=== PATIENT | female | born 1980 | race Caucasian/White ===

== ENCOUNTER 2017-11-07 21:42 | Emergency (ER) | payer OTHER ==
[~2017-11-07] VITALS: Ht 170.1 cm; Wt 63.5 kg
[~2017-11-07 21:42] MED LIST: ADVAIR 100/501 E1 INH; ADVAIR 250/501 EA; ADVAIR 250/501 EA INH; ADVAIR 500/501 E1 INH; ADVAIR 500/501 EA INH; ADVAIR DISKUS 21 DSK IH; ALBUTEROL0.09 MG/A2 IH; ALBUTEROL2.5 MG/0.5 INH; AMOXICILLIN500 MG PO; AMOXIL500 MG PO; ANAPROX DS550 MG PO; AVPAK AZITHROM250 MG PO; BACTRIM DS 8001 TA1 PO; BACTRIM DS 8001 TAB PO; BENADRYL25 MG PO; BUPRENORPHINE HY8 MG PO; CIPRO500 MG PO; CIPROFLOXACIN500 MG PO; CLEOCIN HCL150 MG PO; CLINDAMYCIN HC300 MG PO; CLINDAMYCIN150 MG PO; COMBIVENT1 AR1 IH; COMBIVENT1 AR1 INH; COMBIVENT1 ARO IH; CORDROL20 MG PO; DIFLUCAN150 MG PO; DOXYCYCLINE MO100 MG PO; FLAGYL500 MG PO; HYDROXYZINE PAM50 MG PO; KEFLEX500 MG PO; MACROBID100 M1 PO; MACRODANTIN100 MG PO; MEDROL DOSEPAK4 MG PO; NICODERM C TD; ONDANSETRON HYDR4 M1 PO; PREDNICOT10 MG PO; PREDNICOT20 MG PO; PREDNISONE10 MG PO; PREDNISONE20 M1 PO; PREDNISONE20 MG PO; PRENATAL1 TA1; PRENATAL1 TAB PO; PROAIR HFA0.09 MG/AC IH; PROCARDIA10 MG; PROVENTIL0.09 MG/AC IH; PYRIDIATE200 MG PO; SINEMET 25-100M1 TAB PO; SUBOXONE 8 MG-1 EACH SL; SUBOXONE 8 MG-21 TA2 SL; SUBUTEX8 M1; SUBUTEX8 MG PO; TAGAMET400 MG PO; TRAMADOL HCL50 MG PO; VENTOLIN 02.5 MG/3 M INH; VENTOLIN H0.09 MG/AC INH; VIBRA-TAB100 MG PO; VIBRAMYCIN100 MG PO; Ventolin 02.5 MG/3 M; ZITHROMAX Z PA250 MG PO; ZOFRAN ODT4 MG SL; ZOFRAN4 MG PO
[2017-11-07 21:50] VITALS: BP 120/64
[2017-11-07 22:47] LABS: BILIRUBIN NEGATIVE (NEGATIVE); BLOOD NEGATIVE (NEGATIVE); CLARITY SL CLOUDY (CLEAR); COLOR YELLOW (YELLOW); GLUCOSE NEGATIVE (NEGATIVE); KETONE NEGATIVE (NEGATIVE); LEUKO ESTERASE 2+ (NEGATIVE); NITRITE NEGATIVE (NEGATIVE); SPECIFIC GRAVITY <= 1.005 (1.005-1.030); UROBILINOGEN 0.2 E.U./dl (0.2-1.0)
[2017-11-07 22:55] LABS: URINE AMPHETAMINES < 1000 (1000ng/ml); URINE BARBITURATES < 200 (200ng/ml); URINE BENZODIAZEPINES < 200 (200ng/ml); URINE CANNABINOIDS (THC) > 50 (50ng/ml); URINE COCAINE < 300 (300ng/ml); URINE METHADONE < 300 (300ng/ml); URINE OPIATES > 300 (300ng/ml)
[2017-11-07 22:58] LABS: URINE PHENCYCLIDINE < 25 (25ng/ml)
[2017-11-07 23:02] LABS: EPITHELIAL CELLS 40-45
[2017-11-07 23:03] LABS: BACTERIA TRACE
== END 2017-11-07 23:20 | disposition left against medical advice (07) ==
LOC: ED 21:42
PROVIDERS: Emergency Medicine Emergency Medical Services
DX: O99.321 Drug use complicating pregnancy, first trimester (principal); F11.10 Opioid abuse, uncomplicated; F12.10 Cannabis abuse, uncomplicated; F14.10 Cocaine abuse, uncomplicated; O99.331 Smoking (tobacco) complicating pregnancy, first trimester; F17.210 Nicotine dependence, cigarettes, uncomplicated; O99.511 Diseases of the respiratory system complicating pregnancy, first trimester; J45.909 Unspecified asthma, uncomplicated; Z98.890 Other specified postprocedural states; Z88.0 Allergy status to penicillin; Z91.040 Latex allergy status; Z3A.01 Less than 8 weeks gestation of pregnancy

== ENCOUNTER 2018-03-28 11:58 | Emergency (ER) | payer OTHER ==
[~2018-03-28] VITALS: Ht 170.1 cm; Wt 66.7 kg
[2018-03-28 11:58] VITALS: BP 125/87
[2018-03-28] MEDS ORDERED: PROVENTIL HFA6.7 GM INH (12:00)
[2018-03-28] MEDS ORDERED: PRENATAL 19 TA1 EAC1 PO (12:01)
[2018-03-28] MEDS ORDERED: SUBOXONE 8 MG-1 EACH SL (12:01)
[2018-03-28] MEDS ORDERED: PREDNISONE20 M1 PO (13:44)
[2018-03-28] MEDS ORDERED: ZITHROMAX250 MG PO (13:44)
== END 2018-03-28 14:38 | disposition home or self-care (01) ==
LOC: ED 11:58
DX: O99.512 Diseases of the respiratory system complicating pregnancy, second trimester (principal); J06.9 Acute upper respiratory infection, unspecified; O99.332 Smoking (tobacco) complicating pregnancy, second trimester; F17.210 Nicotine dependence, cigarettes, uncomplicated; Z88.0 Allergy status to penicillin; Z91.040 Latex allergy status; Z79.899 Other long term (current) drug therapy; Z3A.22 22 weeks gestation of pregnancy

== ENCOUNTER 2018-04-16 22:38 | Emergency (ER) | payer OTHER ==
[~2018-04-16] VITALS: Wt 69.4 kg
[~2018-04-16 22:38] MED LIST changes: +PRENATAL 19 TA1 EAC1 PO; +PROVENTIL HFA6.7 GM INH; +ZITHROMAX250 MG PO
[2018-04-16 22:43] VITALS: BP 113/62
[2018-04-16 23:29] LABS: BASO % 0.3 % (0.0-1.0); EOS # 0.6 10*3/uL (0.0-0.4); EOS % 4.1 % (1.0-4.0); HEMATOCRIT 34.8 % (37.0-47.0); HEMOGLOBIN 11.4 g/dl (12.0-16.0); LYMPH # 2.7 10*3/uL (1.3-4.4); LYMPH % 18.9 % (27.0-41.0); MEAN CELL VOLUME 86.4 fl (81.0-99.0); MEAN CORPUSCULAR HGB 28.3 pg (27.0-31.0); MEAN CORPUSCULAR HGB CONC 32.8 g/dl (33.0-37.0); MONO # 1.2 10*3/uL (0.1-1.0); MONO % 8.5 % (3.0-9.0); NEUT # 9.7 10*3/uL (2.3-7.9); NEUT % 67.5 % (47.0-73.0); PLATELET COUNT AUTOMATED 248 10*3/uL (130-400); RED BLOOD COUNT 4.03 10*6/uL (4.10-5.10); RED CELL DISTRI WIDTH 12.7 % (0-14.5); WHITE BLOOD COUNT 14.4 10*3/uL (4.8-10.8)
[2018-04-16 23:44] LABS: ALBUMIN 2.5 gm/dl (3.1-4.5); ALKALINE PHOSPHATASE 135 U/L (45-117); BUN 8 mg/dl (7-24); CHLORIDE 107 mmol/L (98-107); CREATININE 0.53 mg/dL (0.55-1.02); POTASSIUM 3.6 mmol/L (3.5-5.1); SGOT/AST 11 IU/L (3-35); SGPT/ALT 11 U/L (12-78); SODIUM 139 mmol/L (136-145); TOTAL PROTEIN 6.7 gm/dL (6.4-8.2)
[2018-04-16 23:44] LABS: BILIRUBIN NEGATIVE (NEGATIVE); BLOOD NEGATIVE (NEGATIVE); CLARITY CLEAR (CLEAR); COLOR YELLOW (YELLOW); GLUCOSE NEGATIVE (NEGATIVE); KETONE NEGATIVE (NEGATIVE); LEUKO ESTERASE TRACE (NEGATIVE); NITRITE NEGATIVE (NEGATIVE); PH 5.5 (5.0-9.0); UROBILINOGEN 0.2 E.U./dl (0.2-1.0)
[2018-04-16 23:54] LABS: BACTERIA TRACE; EPITHELIAL CELLS 0-2
[2018-05-19] MEDS ORDERED: PREDNISONE20 M1 PO (17:38)
== END 2018-04-17 00:54 | disposition home or self-care (01) ==
LOC: ED 22:38
PROVIDERS: Emergency Medicine Emergency Medical Services
DX: O99.513 Diseases of the respiratory system complicating pregnancy, third trimester (principal); J20.9 Acute bronchitis, unspecified; J45.909 Unspecified asthma, uncomplicated; O23.43 Unspecified infection of urinary tract in pregnancy, third trimester; R82.71 Bacteriuria; O99.333 Smoking (tobacco) complicating pregnancy, third trimester; F17.210 Nicotine dependence, cigarettes, uncomplicated; O99.323 Drug use complicating pregnancy, third trimester; F14.10 Cocaine abuse, uncomplicated; F12.10 Cannabis abuse, uncomplicated; Z79.899 Other long term (current) drug therapy; Z98.890 Other specified postprocedural states; Z3A.28 28 weeks gestation of pregnancy; Z88.0 Allergy status to penicillin; Z91.040 Latex allergy status

== ENCOUNTER 2018-06-29 21:37 | Inpatient (IN) | payer OTHER ==
[~2018-06-29] VITALS: Ht 170.2 cm; Wt 67.2 kg
--- NOTE | ~2018-06-29 | EKG ---
[place], [place] ELECTROCARDIOGRAM REPORT NAME: YARED FRAIRE UNIT #: [id number] ROOM: 412 DOCTOR: YOLA DRAFT REPORT BIRTHDATE: [birth year] [facility] Test Date: 2018-06-29 Test Time: 23:08:36 Pat Name: YARED FRAIRE Department: Room: 412 Gender: F [place] Operator: Viktor Wang : 1980 Requested By: ROSS SALEEM Order Number: [id number] Reading MD: Rolanda Gomez MD Measurements Intervals [place] Rate: 69 P: 63 PA: 129 QRS: 61 QRSD: 96 T: 60 QT: 410 QTc: 440 Interpretive Statements Sinus rhythm The ECG is normal. Electronically Signed On 07-01-2018 13:59:30 PDT by Rolanda Gomez MD CM:EKGRPT:ELECTROCARDIOGRAM REPORT [id number] ROSS SALEEM EPIPHANY DRAFT REPORT ROSS SALEEM
[2018-06-29 21:38] VITALS: BP 131/75
[2018-06-29 22:33] LABS: BILIRUBIN NEGATIVE (NEGATIVE); BLOOD 2+ (NEGATIVE); CLARITY CLEAR (CLEAR); COLOR YELLOW (YELLOW); GLUCOSE NEGATIVE (NEGATIVE); KETONE NEGATIVE (NEGATIVE); LEUKO ESTERASE NEGATIVE (NEGATIVE); NITRITE NEGATIVE (NEGATIVE); UROBILINOGEN 0.2 E.U./dl (0.2-1.0)
[2018-06-29 22:36] LABS: ACETAMINOPHEN (TYLENOL) < 2.0 ug/ml (10-30); ALKALINE PHOSPHATASE 196 U/L (45-117); BUN 10 mg/dl (7-24); CHLORIDE 106 mmol/L (98-107); CREATININE 0.79 mg/dL (0.55-1.02); ETHYL ALCOHOL < 3.0 mg/dl (<3); POTASSIUM 3.5 mmol/L (3.5-5.1); SGOT/AST 14 IU/L (3-35); SGPT/ALT 16 U/L (12-78); SODIUM 139 mmol/L (136-145); TOTAL PROTEIN 7.5 gm/dL (6.4-8.2)
[2018-06-29 22:44] LABS: URINE AMPHETAMINES < 1000 (1000ng/ml); URINE BARBITURATES < 200 (200ng/ml); URINE BENZODIAZEPINES < 200 (200ng/ml); URINE CANNABINOIDS (THC) < 50 (50ng/ml); URINE COCAINE > 300 (300ng/ml); URINE METHADONE < 300 (300ng/ml); URINE OPIATES > 300 (300ng/ml); URINE PHENCYCLIDINE < 25 (25ng/ml)
[2018-06-29 22:47] LABS: BACTERIA 1+
[2018-06-29 23:09] LABS: BASO # 0.1 10*3/uL (0.0-0.1); BASO % 0.4 % (0.0-1.0); EOS # 0.7 10*3/uL (0.0-0.4); EOS % 5.5 % (1.0-4.0); HEMATOCRIT 42.8 % (37.0-47.0); HEMOGLOBIN 13.7 g/dl (12.0-16.0); LYMPH # 3.4 10*3/uL (1.3-4.4); LYMPH % 28.3 % (27.0-41.0); MEAN CELL VOLUME 84.6 fl (81.0-99.0); MEAN CORPUSCULAR HGB 27.1 pg (27.0-31.0); MEAN PLATELET VOLUME 9.1 fl (9.6-12.3); MONO % 8.6 % (3.0-9.0); NEUT # 6.9 10*3/uL (2.3-7.9); NEUT % 56.9 % (47.0-73.0); PLATELET COUNT AUTOMATED 374 10*3/uL (130-400); RED BLOOD COUNT 5.06 10*6/uL (4.10-5.10); RED CELL DISTRI WIDTH 12.6 % (0-14.5); WHITE BLOOD COUNT 12.1 10*3/uL (4.8-10.8)
[2018-06-30 01:15] VITALS: BP 121/77
[2018-06-30] MEDS ORDERED: PROAIR HFA8.5 GM INH (01:43)
[2018-06-30 04:00] VITALS: BP 123/78
[2018-06-30 12:00] VITALS: BP 132/80; BP 83/46
[2018-06-30 16:00] VITALS: BP 143/85
[2018-06-30 20:00] VITALS: BP 138/90
[2018-07-01] VITALS: BP 136/84
[2018-07-01 04:00] VITALS: BP 124/78
[2018-08-30] MEDS ORDERED: Ipratropium Brom3 ML INH (16:35)
[2018-08-30] MEDS ORDERED: PREDNISONE10 MG PO (16:35)
[2018-08-30] MEDS ORDERED: PROAIR HFA8.5 GM INH (16:57)
== END 2018-07-01 10:34 | disposition left against medical advice (07) | DRG 776 ==
LOC: ED 21:37 → EDHOLD 23:05 → 4E 23:36
PROVIDERS: Nurse Practitioner Family
DX: O99.325 Drug use complicating the puerperium (principal); F11.23 Opioid dependence with withdrawal; E44.0 Moderate protein-calorie malnutrition; O99.13 Other diseases of the blood and blood-forming organs and certain disorders involving the immune mechanism complicating the puerperium; F19.10 Other psychoactive substance abuse, uncomplicated; O99.53 Diseases of the respiratory system complicating the puerperium; Z53.21 Procedure and treatment not carried out due to patient leaving prior to being seen by health care provider; O99.335 Smoking (tobacco) complicating the puerperium; D72.829 Elevated white blood cell count, unspecified; F41.9 Anxiety disorder, unspecified; F45.8 Other somatoform disorders; F14.90 Cocaine use, unspecified, uncomplicated; F17.210 Nicotine dependence, cigarettes, uncomplicated; J45.909 Unspecified asthma, uncomplicated; Z88.0 Allergy status to penicillin; Z91.040 Latex allergy status; Z68.23 Body mass index [BMI] 23.0-23.9, adult; Z87.440 Personal history of urinary (tract) infections; Z98.51 Tubal ligation status; Z82.49 Family history of ischemic heart disease and other diseases of the circulatory system; Z81.8 Family history of other mental and behavioral disorders; Z86.19 Personal history of other infectious and parasitic diseases; Z71.6 Tobacco abuse counseling

== ENCOUNTER 2018-07-15 14:27 | Emergency (ER) | payer OTHER ==
[~2018-07-15] VITALS: Ht 170.1 cm; Wt 66.2 kg
[~2018-07-15 14:27] MED LIST changes: +PROAIR HFA8.5 GM INH
[2018-07-15] MEDS ORDERED: PREDNISONE10 MG PO (14:41)
[2018-07-15] MEDS ORDERED: PROAIR HFA8.5 GM INH (14:41)
[2018-07-15] MEDS ORDERED: CLARITIN10 MG PO (14:41)
[2018-07-15] MEDS ORDERED: SINGULAIR10 M1 PO (14:41)
[2018-07-15 15:34] VITALS: BP 119/56
[2018-08-30] MEDS ORDERED: PREDNISONE10 MG PO (16:35)
[2018-08-30] MEDS ORDERED: Ipratropium Brom3 ML INH (16:35)
[2018-08-30] MEDS ORDERED: PROAIR HFA8.5 GM INH (16:57)
== END 2018-07-15 16:15 | disposition left against medical advice (07) ==
LOC: ED 14:27
DX: J45.901 Unspecified asthma with (acute) exacerbation (principal); F17.200 Nicotine dependence, unspecified, uncomplicated; Z88.0 Allergy status to penicillin; Z91.040 Latex allergy status; Z98.51 Tubal ligation status

== ENCOUNTER 2018-11-16 12:38 | Emergency (ER) | payer OTHER ==
[~2018-11-16] VITALS: Ht 170.1 cm; Wt 61.2 kg
[~2018-11-16 12:38] MED LIST changes: +CLARITIN10 MG PO; +Ipratropium Brom3 ML INH; +SINGULAIR10 M1 PO
[2018-11-16 13:01] VITALS: BP 110/60
== END 2018-11-16 13:06 | disposition home or self-care (01) ==
LOC: ED 12:38
DX: T40.1X1A Poisoning by heroin, accidental (unintentional), initial encounter (principal); R40.20 Unspecified coma; J45.909 Unspecified asthma, uncomplicated; F14.90 Cocaine use, unspecified, uncomplicated; F12.90 Cannabis use, unspecified, uncomplicated; F17.200 Nicotine dependence, unspecified, uncomplicated; Z88.0 Allergy status to penicillin; Z91.040 Latex allergy status; Z79.899 Other long term (current) drug therapy; Y92.89 Other specified places as the place of occurrence of the external cause

== ENCOUNTER 2018-11-27 10:18 | Inpatient (IN) | payer OTHER ==
[~2018-11-27] VITALS: Ht 170.2 cm; Wt 64.6 kg
--- NOTE | ~2018-11-27 | EKG ---
[place], [place] ELECTROCARDIOGRAM REPORT NAME: YARED FRAIRE UNIT #: [id number] ROOM: 420 DOCTOR: YOLA DRAFT REPORT BIRTHDATE: [birth year] [facility] Test Date: 2018-11-27 Test Time: 10:35:11 Pat Name: YARED FRAIRE Department: Room: 420 Gender: F Scenery Builder: RYAN : 1980 Requested By: ORIANA MARROQUIN Order Number: [id number] Reading MD: Stanford Elizabeth MD Measurements Intervals [place] Rate: 111 P: 78 [place]: 152 QRS: 75 QRSD: 88 T: 49 QT: 329 QTc: 447 Interpretive Statements Sinus tachycardia Consider right atrial enlargement Compared to ECG 06/29/2018 23:08:36 Sinus rhythm no longer present Electronically Signed On 11-27-2018 17:06:42 PST by Stanford Elizabeth MD CM:EKGRPT:ELECTROCARDIOGRAM REPORT [id number] ORIANA CAMPBELL DRAFT REPORT ORIANA MARROQUIN DO
--- NOTE | ~2018-11-27 | CON ---
[place], [place] REPORT OF CONSULTATION NAME: YARED FRAIRE UNIT #: [id number] ROOM: 420 DOCTOR: PHD CHANDRA NADYA BIRTHDATE: [birth year] DOS: 11/28/2018 HISTORY OF PRESENT ILLNESS: The patient is a 38-year-old female referred by the hospitalist with concerns for anxiety. She overdosed on heroin after being clean since after [facility]. She lives with her father and is unemployed. She has 7 children. Her mother has her 5-month-old currently and she does not have custody of her other children. She has a long history of heroin use. She smokes marijuana daily and smokes half a pack of cigarettes a day. She denied alcohol use. PAST MEDICAL HISTORY: Anxiety, asthma, cocaine abuse, hepatitis C, heroin abuse, leukocytosis, marijuana abuse, moderate protein-calorie malnutrition, panic attacks, tobacco use. MEDICATIONS: Folic acid, thiamine, Phenergan, Lovenox, Desyrel, DuoNeb, Vistaril, Requip, Bentyl, Robaxin, Maalox, Imodium, nicotine, Motrin, Nicoderm, Dulcolax, Zofran, Tylenol, Librium, Rocephin. PHYSICAL EXAMINATION: The patient was awake, alert and oriented. Eye contact and social skills were fair. The patient was irritable that she would not be prescribed benzodiazepines for her anxiety. Affect was constricted and mood was anxious and irritable. She firmly denied suicidal ideation and homicidal ideation. She is a patient at [facility] where she sees a counselor, although she is not sure of his name. She had an appointment for medication management, but did not show, instead wanting to "white-knuckle" her way through her anxiety issues and her sobriety. Speech and language were within normal limits. Thought process was linear and goal directed. Thought content was negative for hallucinations and delusions. Insight and judgment were fair. The patient was not receptive to coping strategies for her anxiety and panic. She discussed having a history of PTSD, which she thinks as a potential trigger for her panic attack. She stated that she used the heroin to deal with her panic and intense anxiety and thinks it is "cruel" that cannot be prescribed Xanax or Ativan. Discussed alternative treatments for anxiety, although the patient was not receptive. She plans to continue to follow up with her outpatient counseling and intensive outpatient program for her heroin use at [facility]. She also agreed to follow up with [facility] to discuss medications as well. DIAGNOSES: Opioid use disorder, cannabis use disorder, tobacco use disorder, posttraumatic stress disorder, panic disorder with agoraphobia. RECOMMENDATIONS: Continue following up with counseling and medication management with [facility] as well as intensive outpatient program at [facility]. The patient was agreeable to this. Thank you very much for this consult. [place], [place] REPORT OF CONSULTATION NAME: YARED FRAIRE UNIT #: [id number] ROOM: 420 DOCTOR: CHANDRA PHD NADYA BIRTHDATE: [birth year] Celeste Cuevas, PhD CM:CONSTR:REPORT OF CONSULTATION 1506 12/05/18 0820 interface
[2018-11-27 10:22] VITALS: BP 128/64; BP 128/84
[2018-11-27 11:16] LABS: BASO % 0.2 % (0.0-1.0); EOS # 0.1 10*3/uL (0.0-0.4); EOS % 0.4 % (1.0-4.0); HEMATOCRIT 42.7 % (37.0-47.0); HEMOGLOBIN 13.9 g/dl (12.0-16.0); LYMPH # 1.2 10*3/uL (1.3-4.4); LYMPH % 6.7 % (27.0-41.0); MEAN CELL VOLUME 89.7 fl (81.0-99.0); MEAN CORPUSCULAR HGB 29.2 pg (27.0-31.0); MEAN CORPUSCULAR HGB CONC 32.6 g/dl (33.0-37.0); MEAN PLATELET VOLUME 9.7 fl (9.6-12.3); MONO # 1.2 10*3/uL (0.1-1.0); MONO % 6.5 % (3.0-9.0); NEUT # 15.2 10*3/uL (2.3-7.9); NEUT % 85.6 % (47.0-73.0); PLATELET COUNT AUTOMATED 260 10*3/uL (130-400); RED BLOOD COUNT 4.76 10*6/uL (4.10-5.10); WHITE BLOOD COUNT 17.7 10*3/uL (4.8-10.8)
[2018-11-27 11:55] LABS: ALBUMIN 3.8 gm/dl (3.1-4.5); ALKALINE PHOSPHATASE 152 U/L (45-117); BUN 10 mg/dl (7-24); CHLORIDE 106 mmol/L (98-107); CREATININE 0.98 mg/dL (0.55-1.02); POTASSIUM 4.2 mmol/L (3.5-5.1); SGOT/AST 46 IU/L (3-35); SGPT/ALT 57 U/L (12-78); SODIUM 138 mmol/L (136-145); TOTAL PROTEIN 7.7 gm/dL (6.4-8.2)
[2018-11-27 11:56] LABS: ACETAMINOPHEN (TYLENOL) < 5.0 ug/ml (10-30); ETHYL ALCOHOL < 3.0 mg/dl (<3)
[2018-11-27 11:57] LABS: B-hCG (QUALITATIVE) NEGATIVE (NEGATIVE)
[2018-11-27 12:30] VITALS: BP 106/78
--- NOTE | 2018-11-27 12:30 | NUR ---
A 38, admitted to , under the services of JAMES Serrano DO with a diagnosis of HEROIN OVERDOSE. Chief complaint is HEROIN OVERDOSE. Patient arrived via bed from ER. Monitor applied. Initial assessment completed. Vital signs taken and recorded. JAMES SERRANO DO notified of admission to the unit. Orders received. See assessment for past medical history, medications and allergies. Patient and/or family oriented to unit. Clothing/patient valuable form completed. ALNA RAYGOZA
--- NOTE | 2018-11-27 12:53 | NUR ---
GÓMEZ AWARE THAT MEDCIATIONS ARE VERIFIED.
--- NOTE | 2018-11-27 13:03 | NUR ---
OFFICE MADE AWARE OF CONSULT.
--- NOTE | 2018-11-27 13:50 | NUR ---
PATIENT IS SITTING UP IN BED, ALERT & AWAKE. VOICED NO COMPLAINTS, ON PHONE WITH HER MOM. CALL KASH LEFT WITHIN REACH.
--- NOTE | 2018-11-27 13:56 | NUR ---
URINE SPECIMEN SENT TO LAB FOR UA C&S AND URINE TOX
[2018-11-27 14:01] LABS: BILIRUBIN NEGATIVE (NEGATIVE); BLOOD 2+ (NEGATIVE); CLARITY SL CLOUDY (CLEAR); COLOR YELLOW (YELLOW); GLUCOSE NEGATIVE (NEGATIVE); KETONE TRACE (NEGATIVE); LEUKO ESTERASE NEGATIVE (NEGATIVE); NITRITE POSITIVE (NEGATIVE); PH 5.5 (5.0-9.0); SPECIFIC GRAVITY >= 1.030 (1.005-1.030); UROBILINOGEN 0.2 E.U./dl (0.2-1.0)
--- NOTE | 2018-11-27 14:05 | NUR ---
PATIENT C/O "NODDING OFF" AND "FEELING SUPER HIGH" AT THIS TIME. PATIENT IS ALSO VERY ANXIOUS AND SCARED TO FALL ASLEEP D/T SYMPTOMS. GÓMEZ NOTIFIED, STATES TO PLACE NARCAN 0.2MG IV NOW.
[2018-11-27 14:10] LABS: BACTERIA 4+; FINE GRANULAR CAST 0-2
[2018-11-27 14:11] LABS: URINE AMPHETAMINES < 1000 (1000ng/ml); URINE BARBITURATES < 200 (200ng/ml); URINE BENZODIAZEPINES < 200 (200ng/ml); URINE CANNABINOIDS (THC) > 50 (50ng/ml); URINE COCAINE < 300 (300ng/ml); URINE METHADONE < 300 (300ng/ml); URINE OPIATES < 300 (300ng/ml)
[2018-11-27 14:16] LABS: URINE PHENCYCLIDINE < 25 (25ng/ml)
--- NOTE | 2018-11-27 14:25 | NUR ---
NARCAN IV PUSH WAS GIVEN AT THSI TIME BY AYE WANG. WILL MONITOR
--- NOTE | 2018-11-27 14:30 | NUR ---
GÓMEZ AT BEDSIDE
--- NOTE | 2018-11-27 14:32 | NUR ---
PATIENT MEDICASTED WITH VISTARIL AND MAALOX FOR C/O ANXIETY AND INDIGESTION. WILL MONITOR.
--- NOTE | 2018-11-27 14:35 | NUR ---
PER CRICKET, PATIENT WILL NEED X1 MORE BAG OF NS 1L FOR A TOTAL OF 2L ALTOGETHER.
--- NOTE | 2018-11-27 14:44 | NUR ---
PATIENT IS NOTABLY BETTER AFTER NARCAN ADMINISTRATION, WILL MONITOR.
--- NOTE | 2018-11-27 15:32 | NUR ---
VISTARIL AND MAALOX EFFECTIVE.
[2018-11-27 16:00] VITALS: BP 113/57
--- NOTE | 2018-11-27 18:30 | NUR ---
CALLED AND ASKED IF PATIENT IS ALLOWED TO HAVE MONITOR OFF FOR SHOWER. STATES THAT IS OK BUT TO PLACE BACK ON AFTERWARDS.
[2018-11-27 20:00] VITALS: BP 100/49
[2018-11-28] VITALS: BP 97/55
--- NOTE | 2018-11-28 06:28 | NUR ---
PATIENT REFUSES AM LABS
[2018-11-28 08:50] LABS: BASO % 0.4 % (0.0-1.0); EOS # 0.2 10*3/uL (0.0-0.4); EOS % 4.6 % (1.0-4.0); LYMPH # 1.8 10*3/uL (1.3-4.4); MEAN CELL VOLUME 89.5 fl (81.0-99.0); MEAN CORPUSCULAR HGB 28.4 pg (27.0-31.0); MEAN CORPUSCULAR HGB CONC 31.8 g/dl (33.0-37.0); MONO # 0.7 10*3/uL (0.1-1.0); MONO % 14.2 % (3.0-9.0); NEUT # 1.9 10*3/uL (2.3-7.9); NEUT % 40.6 % (47.0-73.0); PLATELET COUNT AUTOMATED 182 10*3/uL (130-400); RED BLOOD COUNT 4.08 10*6/uL (4.10-5.10); RED CELL DISTRI WIDTH 14.1 % (0-14.5); WHITE BLOOD COUNT 4.6 10*3/uL (4.8-10.8)
[2018-11-28 08:53] LABS: HEMATOCRIT 36.5 % (37.0-47.0); HEMOGLOBIN 11.6 g/dl (12.0-16.0)
--- NOTE | 2018-11-28 09:00 | NUR ---
case management visits with patient, patient states she doesn't have any home needs and didn't want to talk with case management any more this am. case management will follow for any home needs
[2018-11-28 09:10] LABS: ALBUMIN 2.9 gm/dl (3.1-4.5); ALKALINE PHOSPHATASE 119 U/L (45-117); BUN 9 mg/dl (7-24); CHLORIDE 110 mmol/L (98-107); CHOLESTEROL 122 mg/dL (<200); CREATININE 0.64 mg/dL (0.55-1.02); HDL CHOLESTEROL 37 mg/dl (40-60); LDL CHOLESTEROL 72 mg/dL (9-159); PHOSPHOROUS 3.3 mg/dL (2.5-4.9); POTASSIUM 4.1 mmol/L (3.5-5.1); SGOT/AST 28 IU/L (3-35); SGPT/ALT 43 U/L (12-78); SODIUM 142 mmol/L (136-145); TRIGLYCERIDES 67 mg/dl (<150); VLDL CHOLESTEROL 13 mg/dL (6-40)
[2018-11-28 09:11] LABS: FREE T4 1.18 ng/dl (0.76-1.46)
[2018-11-28 12:00] VITALS: BP 126/66
--- NOTE | 2018-11-28 12:14 | NUR ---
librium given for c/o anxiety. will mopnitor.
--- NOTE | 2018-11-28 13:20 | NUR ---
SARA EFFECTIVE PER PT.
[2018-11-28 16:00] VITALS: BP 131/97
[2018-11-29] VITALS: BP 104/63
--- NOTE | 2018-11-29 08:05 | NUR ---
LIBRIUM GIVEN FOR C/O ANXIETY. WILL MONITOR.
--- NOTE | 2018-11-29 09:00 | NUR ---
case management visits with patient, discussed with patient if the staff from [facility] had visited her and given her pamphlets of follow up drug and alcohol programs. patient stated they had given her some and she was deciding on which to do when discharged. case management will follow for any needs
--- NOTE | 2018-11-29 09:10 | NUR ---
LIBRIUM HELPING, NOT FULLY EFFECTIVE. WILL CONTINUE TO MONITOR.
[2018-11-29 12:00] VITALS: BP 129/77
[2018-11-29 16:00] VITALS: BP 121/60
--- NOTE | 2018-11-29 16:06 | NUR ---
LIBRIUM GIVEN FOR C/O ANXIETY. WILL MONITOR.
--- NOTE | 2018-11-29 17:10 | NUR ---
LIBRIUM HELPING, BUT NOT FULLY EFFECTIVE PER PT. WILL CONTINUE TO MONITOR.
[2018-11-29 20:00] VITALS: BP 144/90
[2018-11-30] VITALS: BP 109/61
--- NOTE | 2018-11-30 | NUR ---
RESTING IN BED WITH EYES CLOSED; AROUSES EASILY FOR MIDNIGHT MEDICATION. VOICES NO C/O; COOPERATIVE AT THIS TIME. CALL LIGHT WITHIN REACH.
--- NOTE | 2018-11-30 06:30 | NUR ---
PT. REFUSING PRN MEDICATIONS AT THIS TIME. CALL LIGHT WITHIN REACH.
--- NOTE | 2018-11-30 07:00 | NUR ---
BEDSIDE REPORT OBTAINED FROM PAT-RN. PATIENT IS RESTING IN BED, EYES CLOSED. NO S&S OF DISTRESS NOTED, RESP ARE ERND ON ROOM AIR. BED IS LOCEKD IN LOWEST POSITION. CALL LIGHT LEFT WITHIN REACH.
[2018-11-30 08:00] VITALS: BP 117/67
--- NOTE | 2018-11-30 08:47 | NUR ---
PATIENT MEDICATED WITH VISTARIL FOR C/O ANXIETY. WILL MONITOR
--- NOTE | 2018-11-30 09:47 | NUR ---
PRN VISTARIL NOT EFFECTIVE FOR ANXIETY PER PATIENT.
--- NOTE | 2018-11-30 11:48 | NUR ---
PATIENT REQUESTING ATIVAN FOR C/O ANXIETY. 1-1 INEFFECTIVE, PRN GIVEN. WILL MONITOR
[2018-11-30 12:00] VITALS: BP 115/61
--- NOTE | 2018-11-30 12:48 | NUR ---
ATIVAN EFFECTIVE FOR ANXIETY.
[2018-11-30 16:00] VITALS: BP 123/74
--- NOTE | 2018-11-30 17:57 | NUR ---
PATIENT MEDICATED WITH ROBAXIN FOR C/O MUSCLE SPASMS. WILL MONITOR.
--- NOTE | 2018-11-30 18:57 | NUR ---
ROBAXIN EFFECTIVE FOR MUSCLE SPASMS
[2018-11-30 20:00] VITALS: BP 134/83
--- NOTE | 2018-11-30 20:24 | NUR ---
PATIENT MEDICATED FOR C/O ANXIETY, WANTING TO SLEEP, AND BODY ACHES WITH ATIVAN/DESYREL/MOTRIN. WILL MONITOR
--- NOTE | 2018-11-30 21:24 | NUR ---
ATIVAN/DESYREL/MOTRIN EFFECTIVE
[2018-12-01] VITALS: BP 151/82
--- NOTE | 2018-12-01 00:01 | NUR ---
PATIENT MEDICATED WITH PRN MEDICATIONS PER DRS ORDERS FOR MULTIPLE COMPLAINTS OF WITHDRAWAL. SEE EMAR. RN WILL CONTINUE TO MONITOR
--- NOTE | 2018-12-01 01:00 | NUR ---
EARLIER MEDICATIONS EFFECTIVE
[2018-12-01 08:00] VITALS: BP 122/79
--- NOTE | 2018-12-01 08:08 | NUR ---
24 HR chart check completed.
--- NOTE | 2018-12-01 09:00 | NUR ---
RESTING IN BED, PLAYING ON CELL PHONE. NO DISTRESS NOTED. RESPIRATIONS EASY. LUNGS DIMINISHED, CLEAR. PULSE OX 95% RA. BATHROOM SMELLS HEAVILY OF PERFUME. QUESTIONED PATIENT TO WHETHER SHE WAS SMOKING IN BATHROOM, PATIENT DENIES. ADMITS TO 1 PPD SMOKER BUT DENIES NEED FOR NICOTINE PATCH OR INHALER.
--- NOTE | 2018-12-01 09:38 | NUR ---
Patient displaying withdrawal symptoms, including: irritability, anxiousness, restlessness and agitation. Scheduled/PRN medications provided, SEE EMAR. Will continue to monitor medication effectiveness.
--- NOTE | 2018-12-01 11:00 | NUR ---
Patient resting. Responding to scheduled medications with fewer complaints of pain and anxiety.
[2018-12-01 12:00] VITALS: BP 125/77
[2018-12-01 16:00] VITALS: BP 125/73
--- NOTE | 2018-12-01 16:00 | NUR ---
Patient resting. Responding to scheduled medications with fewer complaints of pain and anxiety.
--- NOTE | 2018-12-01 18:00 | NUR ---
GUEST PRESENT AT BEDSIDE. NO DISTRESS NOTED. NO VOICED COMPLAINTS
--- NOTE | 2018-12-01 19:45 | NUR ---
CALLED TO ROOM BY PATIENT, STATES EARLIER ATIVAN EFFECTIVE BUT "I FEEL IT WEARING OFF." MED FREQUENCY REVIEWED, VOICED UNDERSTANDING.
[2018-12-01 20:00] VITALS: BP 130/76; BP 140/96
[2018-12-02] VITALS: BP 139/91
--- NOTE | 2018-12-02 01:12 | NUR ---
PATIENT MEDICATED PER DRS ORDERS FOR MULTIPLE WITHDRAWAL COMPLAINTS. SEE EMAR. RN WILL CONTINUE TO MONITOR
--- NOTE | 2018-12-02 02:15 | NUR ---
PATIENT STATES EARLIER MEDICATION WAS EFFECTIVE
--- NOTE | 2018-12-02 06:10 | NUR ---
DR SARAH MADE AWARE OF PATIENT REFUSING AM LABS. NO NEW ORDERS
--- NOTE | 2018-12-02 07:10 | NUR ---
PT SLEEPING. RESPS REG/EASY WITH NO DISTRESS NOTED AT THIS TIME. BEDSIDE REPORT RECEIVED FROM DAX DUTTA.
[2018-12-02 07:30] VITALS: BP 134/62
--- NOTE | 2018-12-02 07:55 | NUR ---
ASSESSMENT DONE AND DOCUMENTED. PT RESTING IN BED. BLAKE ALMONTE SPNRCC
--- NOTE | 2018-12-02 08:58 | NUR ---
MA STAFF SPOKE WITH PATIENT. PATIENT STATED THAT SHE IS GOING TO CONTINUE GOING TO HER INTENSIVE OUTPATIENT TREATMENT AT [facility]. PATIENT IS ALSO SCHEDULED TO SEE HER THERAPIST AT [facility] TODAY AT 3PM. PATIENT AGREES AND UNDERSTANDS HER AFTERCARE PLAN. CATE KRISHNAMURTHY B.A. MANAGER SALES
[2018-12-02] MEDS ORDERED: METHOCARBAMOL750 M1 PO (09:15)
[2018-12-02] MEDS ORDERED: ATARAX,VISTARIL50 MG PO (09:15)
[2018-12-02] MEDS ORDERED: LORAZEPAM1 MG PO (09:15)
[2018-12-02] MEDS ORDERED: ROPINIROLE HYD0.5 MG PO (09:15)
--- NOTE | 2018-12-02 09:30 | NUR ---
MEDICATED WITH ATIVAN PRN ORDERED FOR C/O INCREASED ANXIETY AND NERVOUSNESS. COOPERATIVE AT THIS TIME.
--- NOTE | 2018-12-02 09:50 | NUR ---
DISCHARGE INSTRUCTIONS PROVIDED. PT VERBALIZED UNDERSTANDING. IV SITE DC'D. CATH INTACT. SITE ASYMPTOMATIC. PT TOLERATED WELL. WAITING IN ROOM FOR RIDE HOME.
--- NOTE | 2018-12-02 10:26 | NUR ---
Discharge instructions reviewed with patient/family. Patient receptive and verbalizes understanding. Follow-up care arranged. Written instructions given to patient/family. PATIENT AMBULATED FROM FLOOR. NO S/S OF DISTRESS. MICHELLE BLUM
== END 2018-12-02 10:26 | disposition home or self-care (01) | DRG 917 ==
LOC: ED 10:18 → EDHOLD 11:07 → 4E 11:07
PROVIDERS: Internal Medicine; Internal Medicine Nephrology; Registered Nurse; ADMIT Emergency Medicine
DX: T40.1X1A Poisoning by heroin, accidental (unintentional), initial encounter (principal); A41.9 Sepsis, unspecified organism; N30.00 Acute cystitis without hematuria; F41.9 Anxiety disorder, unspecified; D72.829 Elevated white blood cell count, unspecified; J45.909 Unspecified asthma, uncomplicated; B19.20 Unspecified viral hepatitis C without hepatic coma; E87.8 Other disorders of electrolyte and fluid balance, not elsewhere classified; F11.10 Opioid abuse, uncomplicated; F12.10 Cannabis abuse, uncomplicated; F40.01 Agoraphobia with panic disorder; F43.10 Post-traumatic stress disorder, unspecified; B96.20 Unspecified Escherichia coli [E. coli] as the cause of diseases classified elsewhere; R00.1 Bradycardia, unspecified; F17.210 Nicotine dependence, cigarettes, uncomplicated; Z98.51 Tubal ligation status; Z79.899 Other long term (current) drug therapy; Z88.0 Allergy status to penicillin; Z91.040 Latex allergy status; Z82.49 Family history of ischemic heart disease and other diseases of the circulatory system; Z81.8 Family history of other mental and behavioral disorders; Y92.89 Other specified places as the place of occurrence of the external cause; Z71.6 Tobacco abuse counseling

== ENCOUNTER 2019-01-10 12:35 | Emergency (ER) | payer OTHER ==
[~2019-01-10] VITALS: Ht 170.1 cm; Wt 61.2 kg
[~2019-01-10 12:35] MED LIST changes: +ATARAX,VISTARIL50 MG PO; +LORAZEPAM1 MG PO; +METHOCARBAMOL750 M1 PO; +ROPINIROLE HYD0.5 MG PO
[2019-01-10 12:36] VITALS: BP 118/76
[2019-01-10] MEDS ORDERED: MUCINEX1200 M1 PO (14:32)
[2019-01-10] MEDS ORDERED: PREDNISONE50 MG PO (14:32)
[2019-01-10] MEDS ORDERED: PROAIR HFA8.5 GM INH (14:32)
== END 2019-01-10 14:35 | disposition left against medical advice (07) ==
LOC: ED 12:35
DX: J45.901 Unspecified asthma with (acute) exacerbation (principal); F17.200 Nicotine dependence, unspecified, uncomplicated; Z88.0 Allergy status to penicillin; Z91.041 Radiographic dye allergy status; Z79.899 Other long term (current) drug therapy

== ENCOUNTER 2019-01-13 23:52 | Emergency (ER) | payer OTHER ==
[~2019-01-13] VITALS: Ht 170.1 cm; Wt 61.2 kg
[~2019-01-13 23:52] MED LIST changes: +MUCINEX1200 M1 PO; +PREDNISONE50 MG PO
[2019-01-13 23:54] VITALS: BP 130/87
[2019-01-14 00:49] LABS: BASO % 0.4 % (0.0-1.0); EOS # 1.2 10*3/uL (0.0-0.4); HEMOGLOBIN 13.4 g/dl (12.0-16.0); MEAN CELL VOLUME 89.9 fl (81.0-99.0); MEAN CORPUSCULAR HGB 29.4 pg (27.0-31.0); MEAN CORPUSCULAR HGB CONC 32.7 g/dl (33.0-37.0); MEAN PLATELET VOLUME 9.6 fl (9.6-12.3); MONO # 0.9 10*3/uL (0.1-1.0); MONO % 8.8 % (3.0-9.0); NEUT # 4.6 10*3/uL (2.3-7.9); NEUT % 47.5 % (47.0-73.0); PLATELET COUNT AUTOMATED 282 10*3/uL (130-400); RED BLOOD COUNT 4.56 10*6/uL (4.10-5.10); RED CELL DISTRI WIDTH 13.3 % (0-14.5); WHITE BLOOD COUNT 9.8 10*3/uL (4.8-10.8)
[2019-01-14 01:19] LABS: ALBUMIN 3.1 gm/dl (3.1-4.5); ALKALINE PHOSPHATASE 134 U/L (45-117); CHLORIDE 109 mmol/L (98-107); CREATININE 0.67 mg/dL (0.55-1.02); POTASSIUM 3.6 mmol/L (3.5-5.1); SGOT/AST 26 IU/L (3-35); SGPT/ALT 28 U/L (12-78); SODIUM 142 mmol/L (136-145); TOTAL PROTEIN 6.7 gm/dL (6.4-8.2)
[2019-01-14 01:27] LABS: BUN 7 mg/dl (7-24)
== END 2019-01-14 01:46 | disposition home or self-care (01) ==
LOC: ED 23:52
PROVIDERS: Physician Assistant
DX: J45.901 Unspecified asthma with (acute) exacerbation (principal); F17.200 Nicotine dependence, unspecified, uncomplicated; Z88.0 Allergy status to penicillin; Z91.041 Radiographic dye allergy status; Z79.899 Other long term (current) drug therapy

== ENCOUNTER 2019-02-18 22:06 | Emergency (ER) | payer OTHER ==
[2019-02-18 22:11] VITALS: BP 129/79
== END 2019-02-18 22:19 ==
LOC: ED 22:06
DX: L50.9 Urticaria, unspecified (principal); R09.81 Nasal congestion; J45.909 Unspecified asthma, uncomplicated; F17.200 Nicotine dependence, unspecified, uncomplicated; Z53.21 Procedure and treatment not carried out due to patient leaving prior to being seen by health care provider; Z88.0 Allergy status to penicillin; Z91.040 Latex allergy status

== ENCOUNTER 2019-05-08 19:55 | Emergency (ER) | payer OTHER ==
[~2019-05-08] VITALS: Ht 170.1 cm; Wt 61.2 kg
[2019-05-08 19:58] VITALS: BP 114/68
== END 2019-05-08 21:57 | disposition left against medical advice (07) ==
LOC: ED 19:55
DX: R06.02 Shortness of breath (principal); R07.89 Other chest pain; R05 Cough; J45.909 Unspecified asthma, uncomplicated; F17.200 Nicotine dependence, unspecified, uncomplicated; Z88.0 Allergy status to penicillin; Z91.040 Latex allergy status

== ENCOUNTER 2019-05-11 18:39 | Emergency (ER) | payer OTHER ==
[~2019-05-11] VITALS: Wt 61.2 kg
[2019-05-11 18:41] VITALS: BP 119/80
[2019-05-11 20:02] LABS: BILIRUBIN NEGATIVE (NEGATIVE); BLOOD NEGATIVE (NEGATIVE); CLARITY SL CLOUDY (CLEAR); COLOR YELLOW (YELLOW); GLUCOSE NEGATIVE (NEGATIVE); KETONE TRACE (NEGATIVE); LEUKO ESTERASE NEGATIVE (NEGATIVE); NITRITE NEGATIVE (NEGATIVE); PH 5.5 (5.0-9.0); SPECIFIC GRAVITY >= 1.030 (1.005-1.030); UROBILINOGEN 0.2 E.U./dl (0.2-1.0)
[2019-05-11 20:10] LABS: BACTERIA 1+; MUCOUS 3+
[2019-05-11 20:44] LABS: BASO # 0.1 10*3/uL (0.0-0.1); BASO % 0.6 % (0.0-1.0); EOS # 0.4 10*3/uL (0.0-0.4); EOS % 4.1 % (1.0-4.0); HEMATOCRIT 48.7 % (37.0-47.0); LYMPH # 2.4 10*3/uL (1.3-4.4); LYMPH % 25.7 % (27.0-41.0); MEAN CELL VOLUME 87.7 fl (81.0-99.0); MEAN CORPUSCULAR HGB 28.8 pg (27.0-31.0); MEAN CORPUSCULAR HGB CONC 32.9 g/dl (33.0-37.0); MEAN PLATELET VOLUME 9.3 fl (9.6-12.3); NEUT # 5.5 10*3/uL (2.3-7.9); NEUT % 58.4 % (47.0-73.0); PLATELET COUNT AUTOMATED 345 10*3/uL (130-400); RED BLOOD COUNT 5.55 10*6/uL (4.10-5.10); RED CELL DISTRI WIDTH 13.2 % (0-14.5); WHITE BLOOD COUNT 9.5 10*3/uL (4.8-10.8)
[2019-05-11 21:00] LABS: ALBUMIN 4.4 gm/dl (3.1-4.5); ALKALINE PHOSPHATASE 162 U/L (45-117); BUN 8 mg/dl (7-24); CHLORIDE 104 mmol/L (98-107); CREATININE 0.85 mg/dL (0.55-1.02); POTASSIUM 3.8 mmol/L (3.5-5.1); SGOT/AST 24 IU/L (3-35); SGPT/ALT 27 U/L (12-78); SODIUM 135 mmol/L (136-145); TOTAL PROTEIN 9.8 gm/dL (6.4-8.2)
[2019-05-11] MEDS ORDERED: SEPTDS PO (21:21)
[2019-05-11] MEDS ORDERED: CEPHALEXIN500 M1 PO (21:21)
== END 2019-05-11 21:29 | disposition home or self-care (01) ==
LOC: ED 18:39
PROVIDERS: Nurse Practitioner Family
DX: L02.414 Cutaneous abscess of left upper limb (principal); R21 Rash and other nonspecific skin eruption; R30.0 Dysuria; R35.0 Frequency of micturition; F17.200 Nicotine dependence, unspecified, uncomplicated; Z88.0 Allergy status to penicillin; Z91.040 Latex allergy status

== ENCOUNTER 2020-03-23 19:15 | Emergency (ER) | payer OTHER ==
[~2020-03-23] VITALS: Ht 170.1 cm; Wt 65.8 kg
[~2020-03-23 19:15] MED LIST changes: +CEPHALEXIN500 M1 PO; +SEPTDS PO
[2020-03-23 20:30] VITALS: BP 120/68
== END 2020-03-23 20:30 | disposition home or self-care (01) ==
LOC: ED 19:15
DX: B34.9 Viral infection, unspecified (principal); J45.909 Unspecified asthma, uncomplicated; F41.9 Anxiety disorder, unspecified; F17.200 Nicotine dependence, unspecified, uncomplicated; Z88.0 Allergy status to penicillin; Z91.040 Latex allergy status; Z79.899 Other long term (current) drug therapy; Z20.828 Contact with and (suspected) exposure to other viral communicable diseases

== ENCOUNTER 2020-05-14 11:39 | Emergency (ER) | payer OTHER ==
[~2020-05-14] VITALS: Ht 170.1 cm; Wt 63.5 kg
[2020-05-14 11:48] VITALS: BP 130/88
== END 2020-05-14 13:00 | disposition home or self-care (01) ==
LOC: ED 11:39
DX: R07.9 Chest pain, unspecified (principal); J45.909 Unspecified asthma, uncomplicated; F17.200 Nicotine dependence, unspecified, uncomplicated; Z88.0 Allergy status to penicillin; Z91.040 Latex allergy status

== ENCOUNTER 2021-02-21 11:50 | Emergency (ER) | payer OTHER ==
[~2021-02-21] VITALS: Ht 170.1 cm; Wt 64.4 kg
[2021-02-21 11:57] VITALS: BP 112/62
[2021-02-21] MEDS ORDERED: CLINDAMYCIN HC300 MG PO (12:47)
[2021-02-21] MEDS ORDERED: Motrin,Rufen800 MG PO (12:47)
== END 2021-02-21 13:24 | disposition home or self-care (01) ==
LOC: ED 11:50
DX: K08.89 Other specified disorders of teeth and supporting structures (principal); F17.200 Nicotine dependence, unspecified, uncomplicated; Z88.0 Allergy status to penicillin; Z91.040 Latex allergy status; Z79.2 Long term (current) use of antibiotics; Z98.51 Tubal ligation status; Z98.890 Other specified postprocedural states

== ENCOUNTER 2021-08-28 15:42 | Emergency (ER) | payer OTHER ==
[~2021-08-28 15:42] MED LIST changes: +Motrin,Rufen800 MG PO
== END 2021-08-28 15:50 | disposition left against medical advice (07) ==
LOC: ED 15:42
DX: R42 Dizziness and giddiness (principal); R07.9 Chest pain, unspecified; Z53.21 Procedure and treatment not carried out due to patient leaving prior to being seen by health care provider

== ENCOUNTER 2022-03-16 19:16 | Emergency (ER) | payer OTHER ==
[~2022-03-16] VITALS: Wt 59.0 kg
[2022-03-16 19:23] VITALS: BP 132/85
[2022-03-16 19:40] LABS: BILIRUBIN Negative (Negative); BLOOD Negative (Negative); CLARITY Clear (Clear); COLOR Dark Yellow (Yellow); GLUCOSE Negative (Negative); KETONE Trace (Negative); LEUKO ESTERASE Trace (Negative); NITRITE Negative (Negative); PH 5.5 (4.5-8.0); SPECIFIC GRAVITY 1.025 (1.001-1.030)
[2022-03-16 19:55] LABS: BACTERIA TRACE; MUCOUS 2+
[2022-03-16 19:56] LABS: HYALINE CAST 0-2
[2022-03-16 19:59] LABS: BASO % 0.3 % (0.0-1.0); EOS # 0.3 10*3/uL (0.0-0.4); EOS % 4.5 % (1.0-4.0); HEMATOCRIT 39.1 % (37.0-47.0); LYMPH # 2.6 10*3/uL (1.3-4.4); LYMPH % 42.4 % (27.0-41.0); MEAN CELL VOLUME 87.5 fl (81.0-99.0); MEAN CORPUSCULAR HGB 29.1 pg (27.0-31.0); MEAN CORPUSCULAR HGB CONC 33.2 g/dl (33.0-37.0); MEAN PLATELET VOLUME 10.1 fl (9.6-12.3); MONO # 0.9 10*3/uL (0.1-1.0); NEUT # 2.4 10*3/uL (2.3-7.9); NEUT % 38.6 % (47.0-73.0); PLATELET COUNT AUTOMATED 202 10*3/uL (130-400); RED BLOOD COUNT 4.47 10*6/uL (4.10-5.10); RED CELL DISTRI WIDTH 12.4 % (0-14.5); WHITE BLOOD COUNT 6.2 10*3/uL (4.8-10.8)
[2022-03-16 20:15] LABS: ALKALINE PHOSPHATASE 80 U/L (45-117); BUN 11 mg/dl (7-24); CHLORIDE 108 mmol/L (98-107); CREATININE 0.68 mg/dL (0.55-1.02); POTASSIUM 4.4 mmol/L (3.5-5.1); SGOT/AST 24 IU/L (3-35); SGPT/ALT 30 U/L (12-78); SODIUM 139 mmol/L (136-145)
[2022-03-16 20:17] LABS: B-hCG (QUALITATIVE) NEGATIVE (NEGATIVE)
== END 2022-03-16 21:22 | disposition home or self-care (01) ==
LOC: ED 19:16
PROVIDERS: Emergency Medicine; Family Medicine
DX: R30.0 Dysuria (principal)

== ENCOUNTER 2022-08-19 17:46 | Emergency (ER) | payer MEDICAID ==
[~2022-08-19] VITALS: Ht 170.1 cm; Wt 59.9 kg
[2022-08-19 17:49] VITALS: BP 159/81
[2022-08-19 18:32] LABS: BASO % 0.4 % (0.0-1.0); EOS # 0.1 10*3/uL (0.0-0.4); EOS % 1.1 % (1.0-4.0); HEMATOCRIT 44.2 % (37.0-47.0); LYMPH # 2.2 10*3/uL (1.3-4.4); LYMPH % 29.3 % (27.0-41.0); MEAN CELL VOLUME 87.7 fl (81.0-99.0); MEAN CORPUSCULAR HGB 29.8 pg (27.0-31.0); MEAN CORPUSCULAR HGB CONC 33.9 g/dl (33.0-37.0); MEAN PLATELET VOLUME 9.8 fl (9.6-12.3); MONO # 0.7 10*3/uL (0.1-1.0); MONO % 9.8 % (3.0-9.0); NEUT # 4.5 10*3/uL (2.3-7.9); NEUT % 59.1 % (47.0-73.0); PLATELET COUNT AUTOMATED 261 10*3/uL (130-400); RED BLOOD COUNT 5.04 10*6/uL (4.10-5.10); WHITE BLOOD COUNT 7.6 10*3/uL (4.8-10.8)
[2022-08-19 18:43] LABS: ACT PARTIAL THROMBO TIME 26.8 SECONDS (20.0-32.1)
[2022-08-19 18:52] LABS: ALKALINE PHOSPHATASE 115 U/L (45-117); BUN 13 mg/dl (7-24); CHLORIDE 105 mmol/L (98-107); CREATININE 0.93 mg/dL (0.55-1.02); POTASSIUM 3.7 mmol/L (3.5-5.1); SGOT/AST 93 IU/L (3-35); SGPT/ALT 130 U/L (12-78); SODIUM 136 mmol/L (136-145); TOTAL PROTEIN 8.3 gm/dL (6.4-8.2)
[2022-08-19 18:54] LABS: B-hCG (QUALITATIVE) NEGATIVE (NEGATIVE)
[2022-08-19 18:56] LABS: ETHYL ALCOHOL < 3.0 mg/dl (<3)
[2022-08-19] MEDS ORDERED: MECLIZINE HCL25 M2 PO (20:18)
== END 2022-08-19 20:40 | disposition home or self-care (01) ==
LOC: ED 17:46
PROVIDERS: Emergency Medicine
DX: R42 Dizziness and giddiness (principal); Z87.891 Personal history of nicotine dependence; Z98.51 Tubal ligation status; Z98.890 Other specified postprocedural states; Z79.899 Other long term (current) drug therapy; Z88.0 Allergy status to penicillin; Z91.040 Latex allergy status

== ENCOUNTER → 2022-09-11 | Outpatient (CLI) | payer MEDICAID ==
[~2022-09-11] MED LIST changes: +MECLIZINE HCL25 M2 PO
[2022-09-11 17:09] LABS: BASO % 0.4 % (0.0-1.0); EOS # 0.3 10*3/uL (0.0-0.4); EOS % 3.2 % (1.0-4.0); HEMATOCRIT 42.9 % (37.0-47.0); LYMPH # 3.1 10*3/uL (1.3-4.4); LYMPH % 38.5 % (27.0-41.0); MEAN CELL VOLUME 89.9 fl (81.0-99.0); MEAN CORPUSCULAR HGB 30.6 pg (27.0-31.0); MEAN PLATELET VOLUME 10.3 fl (9.6-12.3); MONO # 0.7 10*3/uL (0.1-1.0); MONO % 8.8 % (3.0-9.0); NEUT % 48.7 % (47.0-73.0); PLATELET COUNT AUTOMATED 217 10*3/uL (130-400); RED BLOOD COUNT 4.77 10*6/uL (4.10-5.10); RED CELL DISTRI WIDTH 13.2 % (0-14.5); WHITE BLOOD COUNT 8.1 10*3/uL (4.8-10.8)
[2022-09-11 17:15] LABS: URINE AMPHETAMINES Negative (1000ng/ml); URINE BARBITURATES Negative (200ng/ml); URINE BENZODIAZEPINES Negative (200ng/ml); URINE COCAINE Negative (300ng/ml); URINE METHADONE Negative (300ng/ml)
[2022-09-11 17:16] LABS: URINE CANNABINOIDS (THC) Positive (50ng/ml); URINE OPIATES Negative (300ng/ml); URINE PHENCYCLIDINE Negative (25ng/ml)
[2022-09-11 17:25] LABS: ALKALINE PHOSPHATASE 101 U/L (46-116); BUN 7 mg/dl (9-23); CHLORIDE 106 mmol/L (98-107); CREATININE 0.64 mg/dL (0.55-1.02); POTASSIUM 3.9 mmol/L (3.4-5.1); SGPT/ALT 80 U/L (10-49); SODIUM 138 mmol/L (136-145); TOTAL PROTEIN 7.5 gm/dL (6.0-8.0)
[2022-09-11 17:27] LABS: THYROID STIM HORMONE (HS) 1.547 uIU/ml (0.550-4.780); VITAMIN D, 25-HYDROXY 39.4 ng/mL (30-100)
== END | disposition home or self-care (01) ==
LOC: LAB 16:08
PROVIDERS: ATTEND Internal Medicine Nephrology
DX: R42 Dizziness and giddiness (principal); F32.A Depression, unspecified; F19.21 Other psychoactive substance dependence, in remission

== ENCOUNTER 2022-09-25 14:26 | Emergency (ER) | payer MEDICAID ==
[~2022-09-25] VITALS: Wt 58.1 kg
[2022-09-25 14:38] VITALS: BP 142/80
[2022-09-25] MEDS ORDERED: MEDROL DOSEPAK4 MG PO (17:08)
== END 2022-09-25 17:25 | disposition home or self-care (01) ==
LOC: ED 14:26
DX: M54.50 Low back pain, unspecified (principal); B34.9 Viral infection, unspecified; Z88.0 Allergy status to penicillin; Z91.040 Latex allergy status; Z98.51 Tubal ligation status; Z98.890 Other specified postprocedural states; F14.90 Cocaine use, unspecified, uncomplicated; F12.90 Cannabis use, unspecified, uncomplicated; F11.90 Opioid use, unspecified, uncomplicated; F10.20 Alcohol dependence, uncomplicated; F17.200 Nicotine dependence, unspecified, uncomplicated; Z20.822 Contact with and (suspected) exposure to COVID-19

== ENCOUNTER 2023-02-05 20:47 | Emergency (ER) | payer MEDICAID ==
[~2023-02-05] VITALS: Ht 170.1 cm; Wt 59.0 kg
[2023-02-05 20:54] VITALS: BP 154/95
[2023-02-05 21:16] LABS: BASO # 0.1 10*3/uL (0.0-0.1); BASO % 0.6 % (0.0-1.0); EOS # 0.6 10*3/uL (0.0-0.4); EOS % 6.2 % (1.0-4.0); HEMATOCRIT 44.2 % (37.0-47.0); LYMPH # 3.3 10*3/uL (1.3-4.4); LYMPH % 32.9 % (27.0-41.0); MEAN CELL VOLUME 88.6 fl (81.0-99.0); MEAN CORPUSCULAR HGB 29.7 pg (27.0-31.0); MEAN CORPUSCULAR HGB CONC 33.5 g/dl (33.0-37.0); MEAN PLATELET VOLUME 9.3 fl (9.6-12.3); MONO % 9.6 % (3.0-9.0); NEUT # 5.1 10*3/uL (2.3-7.9); NEUT % 50.5 % (47.0-73.0); PLATELET COUNT AUTOMATED 252 10*3/uL (130-400); RED BLOOD COUNT 4.99 10*6/uL (4.10-5.10); RED CELL DISTRI WIDTH 12.1 % (0-14.5)
[2023-02-05 21:36] LABS: BILIRUBIN Negative (Negative); BLOOD Negative (Negative); CLARITY Clear (Clear); COLOR Yellow (Yellow); GLUCOSE Negative (Negative); KETONE Negative (Negative); LEUKO ESTERASE Negative (Negative); NITRITE Negative (Negative); SPECIFIC GRAVITY <= 1.005 (1.001-1.030); UROBILINOGEN 0.2 E.U./dl (0.0-1.0)
[2023-02-05 21:36] LABS: ALKALINE PHOSPHATASE 104 U/L (46-116); BUN 5 mg/dl (9-23); CHLORIDE 106 mmol/L (98-107); POTASSIUM 3.5 mmol/L (3.4-5.1); SGPT/ALT 25 U/L (10-49); THYROID STIM HORMONE (HS) 4.108 uIU/ml (0.550-4.780); TOTAL PROTEIN 7.9 gm/dL (6.0-8.0)
[2023-02-05 21:43] LABS: URINE AMPHETAMINES Negative (1000ng/ml); URINE BARBITURATES Negative (200ng/ml); URINE BENZODIAZEPINES Negative (200ng/ml); URINE CANNABINOIDS (THC) Negative (50ng/ml); URINE COCAINE Negative (300ng/ml); URINE METHADONE Negative (300ng/ml); URINE OPIATES Negative (300ng/ml); URINE PHENCYCLIDINE Negative (25ng/ml)
[2023-02-05 21:53] LABS: BACTERIA TRACE
== END 2023-02-05 22:44 | disposition home or self-care (01) ==
LOC: ED 20:47
PROVIDERS: Nurse Practitioner Family
DX: R00.2 Palpitations (principal); F41.9 Anxiety disorder, unspecified; Z88.0 Allergy status to penicillin; Z91.040 Latex allergy status; Z79.899 Other long term (current) drug therapy; Z98.51 Tubal ligation status; Z87.891 Personal history of nicotine dependence

== ENCOUNTER 2023-10-19 16:26 | Emergency (ER) | payer MEDICAID ==
[~2023-10-19] VITALS: Ht 170.1 cm; Wt 61.2 kg
[2023-10-19 17:10] VITALS: BP 116/67
[2023-10-19 17:37] LABS: BILIRUBIN Negative (Negative); BLOOD 1+ (Negative); CLARITY Clear (Clear); COLOR Yellow (Yellow); GLUCOSE Negative (Negative); KETONE Negative (Negative); LEUKO ESTERASE Trace (Negative); NITRITE Negative (Negative); PH 5.5 (4.5-8.0); SPECIFIC GRAVITY 1.015 (1.001-1.030); UROBILINOGEN 0.2 E.U./dl (0.0-1.0)
[2023-10-19 18:34] LABS: WBC 16-20 wbc/hpf (0-5)
[2023-10-19 18:35] LABS: BACTERIA 3+
[2023-10-19] MEDS ORDERED: CIPRO500 MG PO (18:47)
== END 2023-10-19 19:19 | disposition home or self-care (01) ==
LOC: ED 16:26
PROVIDERS: Emergency Medicine
DX: N39.0 Urinary tract infection, site not specified (principal); J45.909 Unspecified asthma, uncomplicated; F41.9 Anxiety disorder, unspecified; Z88.0 Allergy status to penicillin; Z91.040 Latex allergy status; Z98.890 Other specified postprocedural states; Z98.51 Tubal ligation status; F14.90 Cocaine use, unspecified, uncomplicated; F12.90 Cannabis use, unspecified, uncomplicated; F17.200 Nicotine dependence, unspecified, uncomplicated

== ENCOUNTER 2024-04-24 18:00 | Emergency (ER) | payer OTHER ==
[~2024-04-24] VITALS: Ht 167.6 cm; Wt 56.7 kg
[2024-04-24] MEDS ORDERED: SUBOXONE 4 MG-1 EACH SL (18:47)
[2024-04-24] MEDS ORDERED: BENADRYL ALLERG50 MG PO (18:48)
[2024-04-24 19:15] LABS: BILIRUBIN Negative (Negative); BLOOD Negative (Negative); CLARITY Clear (Clear); COLOR Yellow (Yellow); GLUCOSE Negative (Negative); KETONE Negative (Negative); LEUKO ESTERASE Negative (Negative); NITRITE Negative (Negative); PH 5.5 (4.5-8.0); SPECIFIC GRAVITY <= 1.005 (1.001-1.030); UROBILINOGEN 0.2 E.U./dl (0.0-1.0)
[2024-04-24 19:15] LABS: BASO % 0.6 % (0.0-1.0); EOS # 0.4 10*3/uL (0.0-0.4); EOS % 5.1 % (1.0-4.0); HEMATOCRIT 43.7 % (37.0-47.0); LYMPH # 2.9 10*3/uL (1.3-4.4); LYMPH % 40.6 % (27.0-41.0); MEAN CELL VOLUME 91.2 fl (81.0-99.0); MEAN CORPUSCULAR HGB 30.1 pg (27.0-31.0); MEAN PLATELET VOLUME 9.5 fl (9.6-12.3); MONO # 0.7 10*3/uL (0.1-1.0); MONO % 10.1 % (3.0-9.0); NEUT # 3.2 10*3/uL (2.3-7.9); NEUT % 43.3 % (47.0-73.0); PLATELET COUNT AUTOMATED 200 10*3/uL (130-400); RED BLOOD COUNT 4.79 10*6/uL (4.10-5.10); RED CELL DISTRI WIDTH 12.5 % (0-14.5); WHITE BLOOD COUNT 7.3 10*3/uL (4.8-10.8)
[2024-04-24 19:28] LABS: WBC 0-2 wbc/hpf (0-5)
[2024-04-24 19:35] LABS: BUN 9 mg/dl (9-23); CHLORIDE 106 mmol/L (98-107); POTASSIUM 3.5 mmol/L (3.4-5.1)
[2024-04-24 20:35] VITALS: BP 126/76
== END 2024-04-24 20:33 | disposition home or self-care (01) ==
LOC: ED 18:00
PROVIDERS: Physician Assistant Medical
DX: F41.9 Anxiety disorder, unspecified (principal); R11.0 Nausea; R50.9 Fever, unspecified; J45.909 Unspecified asthma, uncomplicated; F14.90 Cocaine use, unspecified, uncomplicated; F12.90 Cannabis use, unspecified, uncomplicated; F17.200 Nicotine dependence, unspecified, uncomplicated; F11.90 Opioid use, unspecified, uncomplicated; Z88.0 Allergy status to penicillin; Z91.040 Latex allergy status; Z98.890 Other specified postprocedural states; Z98.51 Tubal ligation status

== ENCOUNTER 2024-07-29 14:13 | Emergency (ER) | payer MEDICAID ==
[~2024-07-29] VITALS: Ht 170.1 cm; Wt 54.4 kg
[~2024-07-29 14:13] MED LIST changes: +BENADRYL ALLERG50 MG PO; +SUBOXONE 4 MG-1 EACH SL
[2024-07-29] MEDS ORDERED: Ondansetron Hydrochloride 4 MG TAB SL ONE ×2 (14:30→15:50)
[2024-07-29 15:25] VITALS: BP 117/72
[2024-07-29] MEDS ORDERED: Ondansetron4 MG PO (15:58)
== END 2024-07-29 15:32 | disposition home or self-care (01) ==
LOC: ED 14:13
DX: K04.7 Periapical abscess without sinus (principal); H92.02 Otalgia, left ear; J45.909 Unspecified asthma, uncomplicated; F41.9 Anxiety disorder, unspecified; F14.90 Cocaine use, unspecified, uncomplicated; F12.90 Cannabis use, unspecified, uncomplicated; F11.90 Opioid use, unspecified, uncomplicated; F17.200 Nicotine dependence, unspecified, uncomplicated; Z88.0 Allergy status to penicillin; Z91.040 Latex allergy status; Z98.51 Tubal ligation status; Z98.890 Other specified postprocedural states